=== PATIENT | female | born 1960 | race Caucasian/White ===

== ENCOUNTER 2017-12-21 11:37 | Emergency (ER) | payer OTHER ==
[~2017-12-21] VITALS: Ht 172.7 cm; Wt 92.0 kg
[2017-12-21 11:44] VITALS: BP 116/60; PULSE 78; RESP 18; TEMP 98; O2SAT 96
[2017-12-21] MEDS ORDERED: LINA145C PO (11:57)
[2017-12-21] MEDS ORDERED: LEXA5TAB PO (11:58)
[2017-12-21] MEDS ORDERED: TETANUS/DIPHTHERIA TOXOID ADULT 0.5 ML VIAL IM ONE (12:15)
[2017-12-21] MEDS ORDERED: KETOROLAC TROMETHAMINE 60 MG/2 ML (IM) VIAL IM ONE (12:15)
--- NOTE | 2017-12-21 12:47 | PD ---
HPI Chief Complaint: Fall Time Seen by Provider: 11:50 Travel History International Travel<30 days: No Contact w/Intl Traveler<30days: No Traveled to known affect area: No History of Present Illness HPI 57-year-old female here with multiple injuries after she tripped and fell while playing pickle ball this morning. She fell injuring her right knee, left wrist , and ochoa. There was no loss of consciousness. She is not anticoagulated. She reports pain localized to the chin/jaw, wrist and knee. She denies headache , visual changes, neck pain, chest pain, shortness of breath, nausea or vomiting , paresthesia or weakness of the extremities. Symptom severity is moderate. Aggravated by movement. Slightly relieved with rest. PFSH Past Medical History Medical History: Denies Significant Hx Diminished Hearing: No Tetanus Vaccination: Unknown Influenza Vaccination: No ?: Not Social History Alcohol Use: No Tobacco Use: No Substance Use: No Allergies-Medications (Allergen,Severity, Reaction): Coded Allergies: Bleach (Sodium Hypochlorite) (Verified Allergy, Severe, Anaphylaxis, ) meperidine (Verified Allergy, Severe, Hypotension, 12/21/17) latex (Verified Allergy, Mild, Rash, 12/21/17) Reported Meds & Prescriptions Reported Meds & Active Scripts Active Ultram (Tramadol HCl) 50 Mg Tab 50 Mg PO Q6H PRN Reported Lexapro (Escitalopram Oxalate) 5 Mg Tab 5 Mg PO DAILY Linzess (Linaclotide) 145 Mcg Cap 145 Mcg PO DAILY Review of Systems Except as stated in HPI: all other systems reviewed are Neg General / Constitutional: No: Fever Eyes: No: Visual changes HENT: No: Headaches Cardiovascular: No: Chest Pain or Discomfort Respiratory: No: Shortness of Breath Gastrointestinal: No: Abdominal Pain Genitourinary: No: Dysuria Skin: No Rash Neurologic: No: Weakness Physical Exam Narrative GENERAL: Alert and well-appearing 49-year-old female SKIN: Warm and dry. Ecchymosis noted to the right anterior knee. 2 cm laceration to the chin. HEAD: Normocephalic. No hematomas. Facial bones: +TTP over the chin & bilateral TMJ. No malocclusion EYES: Pupils equal and round. EOMI. No injection or drainage. ENT: No nasal bleeding or discharge. Mucous membranes pink and moist. NECK: Trachea midline. No midline spine tenderness. can freely move the neck. CARDIOVASCULAR: Regular rate and rhythm. No chest wall tenderness RESPIRATORY: No accessory muscle use. Clear to auscultation. Breath sounds equal bilaterally. GASTROINTESTINAL: Abdomen soft, non-tender, nondistended. Hepatic and splenic margins not palpable. MUSCULOSKELETAL: Extremities without clubbing, cyanosis. No obvious deformities. RLE: +ttp R anterior knee. Knee in stable. Pain with full flexion. Palpable DP pulse. Normal sensation distally. LUE: +ttp wrist. No deformity. Palpable radial pulse. Normal sensation distally. Wrist cap refill. NEUROLOGICAL: Awake and alert. No obvious cranial nerve deficits. Motor grossly within normal limits. Five out of 5 muscle strength in the arms and legs. Normal speech. PSYCHIATRIC: Appropriate mood and affect; insight and judgment normal. Data Data Last Documented VS Vital Signs Date Time Temp Pulse Resp B/P (MAP) Pulse Ox O2 Delivery O2 Flow Rate FiO2 12/21/17 11:53 100 Room Air 12/21/17 11:44 98.0 78 18 116/60 (78) Orders Orders Ct Facial Bones W/O Iv Cont (12/21/17 ) Ct Cerv Spine W/O Contrast (12/21/17 ) Wrist, Complete ([id number]) (12/21/17 ) Knee, Complete (4vws) (12/21/17 ) Tetanus/Diphtheria Tox Adult (Tetanus/Di (12/21/17 12:15) Ketorolac Inj (Toradol Inj) (12/21/17 12:15) Splint Or Brace Apply/Monitor (12/21/17 13:46) MDM Medical Decision Making Medical Screen Exam Complete: Yes Emergency Medical Condition: Yes Differential Diagnosis Facial laceration, mandible fracture, knee fracture, wrist fracture, cervical spine fracture, contusion Narrative Course 57-year-old female here with multiple injuries after she fell while playing pickle ball. She has normal neurologic exam. Her extremities are neurovascularly intact. CT cervical spine: No fracture or subluxation CT facial bones: No fracture X-ray left wrist: Questionable fracture X-ray right knee: No fracture Laceration was repaired. Splint applied by extractions technologist supervised by me. Extremity is neurovascularly intact post splint application. She is stable and ready for discharge. Procedures Procedure Narrative LACERATION LOCATION: Chin LENGTH: 2 cm NUMBER OF STITCHES/BIANCA: 6 REPAIR: The area of the laceration was prepped with Betadine and sterilely draped. The laceration was infiltrated with 1% lidocaine with epi. The wound was copiously irrigated and explored without evidence of foreign body, tendon injury or neurovascular injury. The wound was closed using 5-0 Ethilon. This was a single layer repair. A sterile dressing was applied. The patient was advised to keep the dressing clean and dry. Patient tolerated the procedure well. Diagnosis Primary Impression: Facial laceration Qualified Codes: S01.81XA - Laceration without foreign body of other part of head, initial encounter Additional Impression: Wrist fracture Qualified Codes: S62.102A - Fracture of unspecified carpal bone, left wrist, initial encounter for closed fracture Referrals: Orthopedist Primary Care Physician Additional Instructions: Sutures need to be removed in 5-7 days. Follow-up with orthopedist. Ice and elevate the extremities. Return if you have new or worsening symptoms. Scripts Tramadol (Ultram) 50 Mg Tab 50 MG PO Q6H Y for PAIN, #12 TAB 0 Refills Prov: Kallie Hanks 12/21/17 Disposition: 01 DISCHARGE HOME Condition: Stable Kallie Hanks Dec 21, 2017 12:47
--- NOTE | 2017-12-21 12:51 | RADRPT ---
EXAM DATE: 12/21/2017 12:32 PM EDT AGE/SEX: 57 years / Female INDICATIONS: Left wrist pain after fall. CLINICAL DATA: This is the patient's initial encounter. Patient reports that signs and symptoms have been present for 1 day and indicates a pain score of 10/10. MEDICAL/SURGICAL HISTORY: None. None. COMPARISON: No prior exams available for comparison. FINDINGS: There is a questionable fracture only seen on the lateral projection dorsally in the mid carpal row. CONCLUSION: Questionable fracture only seen on the lateral projection dorsally and clinical correlation is sugges clarissa. Electronically signed by: Nancy Amaro MD 12/21/2017 12:50 PM EDT
--- NOTE | 2017-12-21 12:52 | RADRPT ---
EXAM DATE: 12/21/2017 12:31 PM EDT AGE/SEX: 57 years / Female INDICATIONS: Right knee pain after fall. CLINICAL DATA: This is the patient's initial encounter. Patient reports that signs and symptoms have been present for 1 day and indicates a pain score of 10/10. MEDICAL/SURGICAL HISTORY: None. None. COMPARISON: No prior exams available for comparison. FINDINGS: No definite fractures, or dislocations are identified. No definite lytic or sclerotic les ion is seen. Soft tissue swelling is seen in the suprapatellar location. CONCLUSION: Unremarkable study except for soft tissue swelling. Electronically signed by: Nancy Amaro MD 12/21/2017 12:51 PM EDT
--- NOTE | 2017-12-21 13:02 | RADRPT ---
EXAM DATE: 12/21/2017 12:47 PM EDT AGE/SEX: 57 years / Female INDICATIONS: Trauma. Fell this morning. CLINICAL DATA: This is the patient's initial encounter. Patient reports that signs and symptoms have been present for 1 day and indicates a pain score of 2/10. MEDICAL/SURGICAL HISTORY: None. None. RADIATION DOSE: 26.12 CTDI (mGy) COMPARISON: No prior exams available for comparison. TECHNIQUE: Contiguous axial images were obtained using helical multirow detector technique. The vol umetric data was post-processed with multiplanar reconstruction in oblique axial, sagittal, and coron al planes. Using automated exposure control and adjustment of the mA and/or kV according to patient s ize, radiation dose was kept as low as reasonably achievable to obtain optimal diagnostic quality trevon ges. FINDINGS: Vertebrae: Normal vertebral body height. Alignment: Normal. No subluxation. C2-3: The bony spinal canal is normal in size. No evidence of disc bulge or herniation. The neural foramina are bilaterally patent. C3-4: The bony spinal canal is normal in size. No evidence of disc bulge or herniation. The neural foramina are bilaterally patent. C4-5: The bony spinal canal is normal in size. No evidence of disc bulge or herniation. The neural foramina are bilaterally patent. C5-6: The bony spinal canal is normal in size. No evidence of disc bulge or herniation. The neural foramina are bilaterally patent. C6-7: The bony spinal canal is normal in size. No evidence of disc bulge or herniation. The neural foramina are bilaterally patent. C7-T1: The bony spinal canal is normal in size. No evidence of disc bulge or herniation. The neura l foramina are bilaterally patent. CONCLUSION: 1. No acute fracture or prevertebral soft tissue swelling. Electronically signed by: Wesly Lozano MD 12/21/2017 1:01 PM EDT
--- NOTE | 2017-12-21 13:11 | RADRPT ---
EXAM DATE: 12/21/2017 12:47 PM EDT AGE/SEX: 57 years / Female INDICATIONS: Trauma. Fell this morning. Chin laceration. CLINICAL DATA: This is the patient's initial encounter. Patient reports that signs and symptoms have been present for 1 day and indicates a pain score of 10/10. MEDICAL/SURGICAL HISTORY: None. None. RADIATION DOSE: 25.62 CTDI (mGy) COMPARISON: No prior exams available for comparison. TECHNIQUE: Contiguous images in the axial and coronal planes were obtained using helical multirow de tector technique. Using automated exposure control and adjustment of the mA and/or kV according to p atient size, radiation dose was kept as low as reasonably achievable to obtain optimal diagnostic marily lity images. FINDINGS: Orbits: The orbital and infraorbital osseous structures are intact. The retroconal structures have a normal configuration. No radiopaque foreign bodies are seen. Nasal Bone: The nasal bone and maxillary spine are intact. Zygomatic Arches: Symmetric without evidence of fracture. Sinuses: The maxillary, ethmoid, and frontal sinuses are intact. No air-fluid levels seen. Nasal Cavity: The nasal septum is intact and midline. The lacrimal ducts are intact. Soft Tissues: No radiopaque foreign bodies seen. Soft tissue swelling and laceration are noted anum g the chin. Intracranial: No intracranial air seen. Cribriform Plate: Grossly intact. CONCLUSION: 1. Soft tissue injury along the chin 2. No evidence of acute fracture. Electronically signed by: Negrito Leigh MD 12/21/2017 1:10 PM EDT
[2017-12-21] MEDS ORDERED: TRAM50 PO (13:41)
== END 2017-12-21 14:02 | disposition home or self-care (01) ==
LOC: PHEFT 11:37
DX: S01.81XA Laceration without foreign body of other part of head, initial encounter (principal); S62.102A Fracture of unspecified carpal bone, left wrist, initial encounter for closed fracture; S89.91XA Unspecified injury of right lower leg, initial encounter; W01.0XXA Fall on same level from slipping, tripping and stumbling without subsequent striking against object, initial encounter; Y93.73 Activity, racquet and hand sports; Z23 Encounter for immunization
CPT/HCPCS: 12011; 70486; 72125; 73110; 73564; 90471; 90714; 96372; 99284; J1885; L3908